=== PATIENT | female | born 1995 | race Two or more races ===

== ENCOUNTER 2024-02-23 09:41 | Emergency (ER) | payer OTHER ==
[~2024-02-23] VITALS: Ht 165.1 cm; Wt 63.5 kg
[2024-02-23] MEDS ORDERED: ALLEGRA ALLERG180 MG (09:54)
[2024-02-23] MEDS ORDERED: ECOTRIN81 MG (09:54)
[2024-02-23 11:51] LABS: INR 1.21; PARTIAL THROMBOPLASTIN TIME 34.2 SECONDS (22.0-34.0)
== END 2024-02-23 15:05 | disposition home or self-care (01) ==
LOC: ER 09:43
DX: M25.512 Pain in left shoulder (principal); Z86.718 Personal history of other venous thrombosis and embolism; Z91.018 Allergy to other foods; Z91.013 Allergy to seafood